=== PATIENT | male | born 1965 | race Caucasian/White ===

== ENCOUNTER → 2018-01-17 10:58 | Outpatient (CLI) | payer OTHER, SELFPAY | PROVIDERS: Family Provider Family Medicine; PCP Family Medicine; Visit Provider Chiropractor | DX: M54.12 Radiculopathy, cervical region (principal); M99.01 Segmental and somatic dysfunction of cervical region; M99.02 Segmental and somatic dysfunction of thoracic region | CPT/HCPCS: 72040 ==

== ENCOUNTER → 2018-05-25 08:09 | Outpatient (CLI) | payer OTHER, SELFPAY ==
--- NOTE | 2018-05-25 08:12 | RAD_ITS ---
STUDY: X-RAY - RIGHT SHOULDER REASON FOR EXAM: Male, 52 years old. Limited range of motion and pain. No known trauma. TECHNIQUE: 3 view(s) of the shoulder. COMPARISON: None. FINDINGS: There is arthrosis of the glenohumeral joint. There is arthrosis of the acromioclavicular joint. Normal acromion. Normal humeral head and visualized proximal humerus. The soft tissue structures are unremarkable. Normal visualized pulmonary apex. 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 Electronically Signed: Tigre Shields MD at 17:58 EST , Service support ,
== END ==
PROVIDERS: Family Provider Family Medicine; PCP Family Medicine; Referring Provider Orthopaedic Surgery; Visit Provider Orthopaedic Surgery
DX: M25.511 Pain in right shoulder (principal)
CPT/HCPCS: 73030

== ENCOUNTER → 2019-11-21 09:04 | Outpatient (CLI) | payer OTHER, SELFPAY ==
[2019-11-21 09:01] VITALS: BMI 36.5
--- NOTE | 2019-11-21 09:05 | RAD_ITS ---
STUDY: X-RAY - LEFT ANKLE REASON FOR EXAM: Male, 54 years old. PAIN X6 MONTHS, NKI TECHNIQUE: 3 view(s) of the ankle. COMPARISON: None. FINDINGS: Normal visualized distal tibia and fibula. Normal medial and lateral malleoli. Normal tibiotalar articulation and ankle mortise. Normal visualized talus. Achilles tendon spur The visualized subtalar, talonavicular, calcaneocuboid and tarsal articulations are normal. The soft tissue structures are unremarkable. RAD/Ankle min 3 Views IMPRESSION: Calcaneal spur, no demonstrated fracture or suspicious osseous lesion Electronically Signed: Jorge Luis Oliva MD at 10:10 EDT , Service support ,
== END ==
PROVIDERS: PCP Family Medicine; Referring Provider Orthopaedic Surgery; Visit Provider Orthopaedic Surgery
DX: M25.572 Pain in left ankle and joints of left foot (principal)
CPT/HCPCS: 73610

== ENCOUNTER 2019-12-27 08:00 | Outpatient (RCR) | payer OTHER, SELFPAY ==
[2019-11-21 09:01] VITALS: BMI 36.5
--- NOTE | 2019-11-27 12:26 | HP.PTEVAL ---
Patient's Visit Information PELON GLASS is a 54 year old M referred to Physical Therapy by Dr. Kerry Vázquez, with a diagnosis of LEFT PERONEAL MUSCLE STRAIN. Date of Evaluation: 11/27/19 Physical Therapist: Maryjane Gregory PT, Cert MDT - Visit Plan Frequency: 2-3x /Week Duration: 4-6 Weeks Plan: LEFT ANKLE US, ROM, STRETCHING AND STRENGTHENING TO HELP MEET SET GOALS. 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 WORKS WITH LOCAL [employer] AND [employer]. 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 Disability: NO. Present symptoms: LEFT LATERAL ANKLE PAIN. NO NUMBNESS OR TINGLING. SOME RIGHT HIP PAIN THE LAST TWO MONTHS THAT PATIENT RELATES TO COMPENSATING FOR LEFT ANKLE. LEFT LEG ALWAYS FEELS TIGHT. Present since: ABOUT 6 MONTHS AGO. Pain Scale: WORST4/10, LEAST 0/10. Currently: 06/07. Commenced as a result of: LEFT CALF SOWMYA HORSE DURING A CONFERENCE THAT CAME ON FOR NO APPARENT REASON. BECAME VERY BLACK AND BLUE. AT THE TIME THERE WAS NO ANKLE PAIN AND NO ANKLE TWISTING THAT PATIENT RE-CALLS. Symptoms at onset: LEFT CALF CRAMP? Worse: TRYING TO WALK AFTER PROLONGED SITTING/DRIVING. STAIRS. TOO MUCH WALKING. Better: GETS LOOSER WITH WALKING IF DOESN'T WALK TOO MUCH. Disturbed sleep: NO. Previous history/Previous treatment: H/O LBP BUT HAS NOT BEEN TO THE CHIROPRACTOR FOR OVER A YEAR. LEFT BONE SPUR REMOVED ABOUT 25 YEARS AGO LEFT POST ANKLE. Treatment this episode: JUST PT ORDER AND OTC MEDICATION. Gait: PATIENT REPORTS HE HAS ALWAYS TENDED TO WALK ON THE OUTSIDE OF HIS FEET. Imaging: LEFT FOOT X-RAYS - NORMAL. PMH: UNREMARKABLE OTHER THAN HTN AND HIGH CHOLESTEROL. OTHER: PATIENT REPORTS HE HAS KEPT HIS ACTIVITY LEVEL PRETTY NORMAL EXCEPT HASN'T BEEN ABLE TO SWIM DUE TO COVID AND HIS LEFT ANKLE PAIN HAS BEEN STAYING ABOUT THE SAME. TREATMENT: PATIENT WAS INSTRUCTED IN PROPER POSTURE CONTROL AND APPROPRIATE ACTIVITY MODIFICATIONS TO HELP PROMOTE HEALING AND MINIMIZE SECONDARY PROBLEMS WHILE HEALING. HE COMMUNICATED A GOOD UNDERSTANDING OF ALL INSTRUCTIONS AFTER GIVEN. - Objective THIS PATIENT AMBULATES INDEP'LY INTO PT LIMPING ON THE LLE AND WALKING ON THE OUTSIDE OF HIS FOOT WITHOUT ANY ASSISTIVE DEVICES OR LOB. HE HAS TENDERNESS ALONG THE LATERAL ASPECT OF HIS ANKLE BEHIND THE LATEAL MALLEOLUS AND INTO THE LATERAL ASPECT OF HIS FOOT. HIS CALF IS TIGHT AND TENDER. KAMRYN HIP, KNEE AND ANKLE ROM AND STRENGTH IS WFL AND PAINFREE EXCEPT HIS LEFT ANKLE. LEFT ANKLE ROM IS LIMITED TO 3 DEGREES OF ACTIVE DORSIFLEX, 48 DEG PLANTAR FLEXION (BOTH MEASURED WITH KNEE EXTENDED), FULL INVERSION AND ZERO DEG EVERSION. ANKLE DORSIFLEXION WITH KNEE FLEXION IS 5 DEG. DORSIFLEX STRENGTH IS 4/5 IN AVAILABLE RANGE, INV 4/5, EVERSION 2/5, PLANTAR FLEX NT. - Goals Goal 1:: DECREASE C/O LEFT LEG, ANKLE AND FOOT PAIN Goal Time Frame: 4-6 Weeks Goal 2:: IMPROVE STANDING AND WALKING FUNCTION Goal Time Frame: 4-6 Weeks Goal 3:: INCREASE FUNCTIONAL ROM OF LEFT ANKLE Goal Time Frame: 4-6 Weeks Goal 4:: INCREASE FUNCTIONAL STRENGTH OF LEFT ANKLE. Goal Time Frame: 4-6 Weeks Goal 5:: PATIENT WILL BE INDEP WITH A HEP FOR CONTINUED IMPROVEMENT ONCE FORMAL PHYSICAL THERAPY CONCLUDES. Goal Time Frame: 4-6 Weeks - Anticipated Interventions Patient/Client Instruction: Educate patient on: Condition, Plan of Care, Risk Factors, Benefits of Fitness Program For the Purpose of:: To facilitate caregiver knowledge Therapeutic Exercise to Include: Strength training, Balance training, Flexibilty training, Gait and locomotor training, Neuromotor development, Passive ROM, Active ROM For the Purpose of:: To decrease pain, To increase ROM, To improve muscle performance and motor function, To increase tolerance to activity/condition/position, To improve ability of physical actions for home/community/work/leisure, To improve gait and locomotor functions Manual Therapy Techniques to Include: Mobilization, Passive ROM, Soft tissue mobilization For the Purpose of:: To decrease pain, To decrease swelling/inflammation, To increase ROM, To improve nutrient delivery to tissue Cryotherapy (ice pack, ice massage): Yes Thermo therapy (hot pack): Yes Ultrasound (thermal/non thermal): Yes For the Purpose of:: To decrease pain, To decrease swelling/inflammation, To improve nutrient delivery to tissue Thank you for the opportunity to evaluate your patient. For Medicare and Medicare HMO plans, please review the plan of care and approve it. It will need to be FAXED BACK to us at [phone] for Medicare purposes. For Medicare only, by signing this I certify the plan of care. Please let me know if there are questions or concerns regarding this plan of care. Physician Signature: Date:
--- NOTE | 2020-03-30 17:39 | HP.PT.NRP ---
PELON GLASS was seen in my office for initial evaluation on 11/27/19. The following Plan of Care was established for this patient: Initial Frequency: 2-3x /Week Initial Duration: 4-6 Weeks Patient/Client Instruction: Educate patient on: Condition, Plan of Care, Risk Factors, Benefits of Fitness Program For the Purpose of:: To facilitate caregiver knowledge Therapeutic Exercise to Include: Strength training, Balance training, Flexibilty training, Gait and locomotor training, Neuromotor development, Passive ROM, Active ROM For the Purpose of:: To decrease pain, To increase ROM, To improve muscle performance and motor function, To increase tolerance to activity/condition/position, To improve ability of physical actions for home/community/work/leisure, To improve gait and locomotor functions Manual Therapy Techniques to Include: Mobilization, Passive ROM, Soft tissue mobilization For the Purpose of:: To decrease pain, To decrease swelling/inflammation, To increase ROM, To improve nutrient delivery to tissue Cryotherapy (ice pack, ice massage): Yes Thermo therapy (hot pack): Yes Ultrasound (thermal/non thermal): Yes For the Purpose of:: To decrease pain, To decrease swelling/inflammation, To improve nutrient delivery to tissue This patient was last seen in our office 12/27/19. Pertinent comments regarding their Physical therapy will appear below: This patient has not returned to Physical Therapy and is appropriate to return to MD for further follow-up as needed. At this point I will be discontinuing this patient from physical therapy. I would be happy to see this patient again in the future if found appropriate by the physician. Thank you! Maryjane Gregory, PT, Cert MDT
== END 2019-12-27 19:00 | disposition home or self-care (01) ==
LOC: PT 08:00
PROVIDERS: PCP Family Medicine; Referring Provider Orthopaedic Surgery; Visit Provider Orthopaedic Surgery
DX: S86.312D Strain of muscle(s) and tendon(s) of peroneal muscle group at lower leg level, left leg, subsequent encounter (principal)
CPT/HCPCS: 97035; 97110; 97112; 97161; 97164

== ENCOUNTER → 2020-01-16 16:36 | Outpatient (CLI) | payer OTHER, SELFPAY ==
[2020-01-02 14:41] VITALS: BMI 36.5
--- NOTE | 2020-01-16 16:38 | US_ITS ---
STUDY: SUPERFICIAL ULTRASOUND - LEFT CALF. REASON FOR EXAM: Male, 54 years old. LUMP LATERAL LEFT CALF TECHNIQUE: A superficial ultrasound was performed with real-time and static nagel-scale imaging. COMPARISON: None. FINDINGS: No obvious mass in the left calf area. US/Ext Non Vasc Limited/Soft Tiss IMPRESSION: No obvious mass in the left calf area. MRI will be more helpful. Electronically Signed: Derik Cain MD at 12:45 EDT , Service support ,
== END ==
LOC: US 16:38
PROVIDERS: PCP Family Medicine; Referring Provider Orthopaedic Surgery; Visit Provider Orthopaedic Surgery
DX: R22.9 Localized swelling, mass and lump, unspecified (principal)
CPT/HCPCS: 76882

== ENCOUNTER → 2020-04-01 06:36 | Outpatient (CLI) | payer OTHER, SELFPAY ==
--- NOTE | 2020-04-01 06:36 | MRI_ITS ---
PROCEDURE: MRI LOWER EXTREMITY LEFT TIBIA/FIBULA REASON FOR EXAM: Mid lateral calf pain, injury in April with hematoma. TECHNIQUE: Standardized fat and water weighted pulse sequences were obtained in all 3 orthogonal planes. COMPARISON: Ultrasound report 01/16/2020. FINDINGS: Normal visualized tibia and fibula, without a periosteal, cortical or cancellous marrow abnormality. There is a well-defined signal void on T1 and T2 images in the peroneus longus muscle at the level of the mid calf (T1 axial images 26-35; T2 sagittal images 24, 25), likely representing calcified hematoma. The lesion measures 1.8 x 1.5 x 7.4 cm (AP x transverse x length). There is atrophy with partial fat replacement of the peroneus longus muscle (T1 coronal images 12-14). Otherwise, unremarkable muscle groups. There is mild edema in the anterior subcutis adipose space of the mid and distal lower leg. MRI/Lower Ext/No Jt/w/o IMPRESSION: Signal void in the proximal peroneus longus muscle, likely representing a calcified hematoma. Atrophy of the peroneus longus muscle. Electronically Signed: Sean Gutierres MD at 11:29 EST Tel , Service support ,
== END ==
PROVIDERS: PCP Family Medicine; Referring Provider Orthopaedic Surgery; Visit Provider Orthopaedic Surgery
DX: S84.12XA Injury of peroneal nerve at lower leg level, left leg, initial encounter (principal); S86.312A Strain of muscle(s) and tendon(s) of peroneal muscle group at lower leg level, left leg, initial encounter
CPT/HCPCS: 73718

== ENCOUNTER 2020-08-17 07:00 | Outpatient (RCR) | payer OTHER, SELFPAY ==
--- NOTE | 2020-06-22 16:02 | HP.PTEVAL ---
Patient's Visit Information PELON GLASS is a 54 year old M referred to Physical Therapy by Dr. Kerry Vázquez DO with a diagnosis of L lateral calf calcific hematoma. Date of Evaluation: 06/22/20 Physical Therapist: Lea Juniro DPT - Visit Plan Frequency: 2x /Week Duration: 4 Weeks Plan: Manual and Stretching- Ionto-acetic acid and US in order to break up hematoma and improve functional mobiltiy - Subjective Pt reports a year ago april, had a anabela horse and became hand size of hematoma bruise, last october came for ankle pain. pain got worse on lateral upper leg below the knee and remains in that area. Pt did US and MRI- found scar tissue piece and wants to break it up on L lateral upper leg (below knee). pain: 1-2/10, feel burn with movement. worse: sitting in driving position, any movement lifting it indpendently up. better: when he lays down in the morning and he tries to stretch it out on the floor in long sitting. 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 PHMx: BP and chlolesterol. Dr. Francis said to break it up or she will have to cut it out. see massage theapy every other month. 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 sleep: sleeps prone, eases pain, no problems - Objective posture: FH, RS. gait: antalgic, decrease weight bear on L. observation: atrophy in L calf. SLS: decrease stability on L>R- can SLS for 5 sec then LOB. HR/TR: decrease weight shift on L. HR up with 2, down with L only: poor eccentric control. stairs: decrease weight bear through L, no use of UE. calf girth: L 45cm, R 46cm - 6 inches below knee crease. palpation: L gastroc tightness, tender on L lateral leg below knee- pebble size nodule. ROM: hip/knee/ankle: WFL. strength: hip/knee/ankle: 5/5 with visible muscle atrophy in L calf but no strength deficits. pt education on HEP from prior visit: calf stretching - Goals Goal 1:: Patient will perform I HEP with progression Goal Time Frame: 4-6 Weeks Goal 2:: Patient will demonstrate equal calf girth in order to promote eqaul weight shift Goal Time Frame: 4-6 Weeks Goal 3:: Patient will demonstrate equal weight bearing through gait mechanics in order to perform I functional mobility Goal Time Frame: 4-6 Weeks - Rehabilitation Potential Physical Therapy Diagnosis: Pt presents with dereased balance, ability to weight bear equally impacting functional mobility tasks and ADLs. Rehabilitation Potential: Good - Anticipated Interventions Patient/Client Instruction: Educate patient on: Plan of Care For the Purpose of:: To improve muscle performance and motor function Therapeutic Exercise to Include: Strength training, Endurance training, Balance training, Coordination, Agility training, Body mechanics, Postural training, Flexibilty training, Gait and locomotor training, Neuromotor development For the Purpose of:: To improve performance and independence with ADL's Manual Therapy Techniques to Include: Massage, Soft tissue mobilization For the Purpose of:: To improve muscle performance and motor function, To decrease soft tissue restriction Iontophoresis (with Dexamethozone, with Acetic acid): Yes Cryotherapy (ice pack, ice massage): Yes Thermo therapy (hot pack): Yes Ultrasound (thermal/non thermal): Yes Thank you for the opportunity to evaluate your patient. For Medicare and Medicare HMO plans, please review the plan of care and approve it. It will need to be FAXED BACK to us at [phone] for Medicare purposes. For Medicare only, by signing this I certify the plan of care. Please let me know if there are questions or concerns regarding this plan of care. Physician Signature: Date:
--- NOTE | 2020-07-20 08:57 | HP.PTREVAL ---
Dr. Kerry Vázquez, DO, It has been my pleasure to treat PELON GLASS over the last 9 visits for L lateral calf calcific hematoma. Please see the progress note below for an update on the physical therapy plan of care! Subjective: This past monday did not do ionto but did do US and exercise and left it feeling more agitated than it has in the past. It has been getting better though. Has been easier to find. 80% but varies. Each time he came in, he was ready to come back in. Objective/Function: posture: FH, RS. gait: able to weight bear with poor hell/toe progression. observation: fair atrophy in L calf. SLS: decrease stability on L>R- can SLS for 7 sec then LOB. HR/TR: able to weight shift bilaterally. stairs: reciprocal with equal weight bearing through bilateral LE no use of UE. calf girth: L 45cm, R 46cm - 6 inches below knee crease. palpation: denies tenderness L gastroc tightness, decrease in size of nodule as compared to eval. ROM: hip/knee/ankle: WFL. strength: hip/knee/ankle: 5/5 with visible muscle atrophy in L calf but no strength deficits. Flexibilty: calf moderate Plan Plan: Pt to continue with PT in order to increase flexibilty, strength and proper gait mechanics. continue with ionto, US, and stretching Goals Goal 1:: Patient will perform I HEP with progression Goal Time Frame: 4-6 Weeks Goal Progress: Progressing Goal 2:: Patient will demonstrate equal calf girth in order to promote eqaul weight shift Goal Time Frame: 4-6 Weeks Goal Progress: Progressing Goal 3:: Patient will demonstrate equal weight bearing through gait mechanics in order to perform I functional mobility Goal Time Frame: 4-6 Weeks Goal Progress: Progressing Anticipated Interventions Patient/Client Instruction: Educate patient on: Plan of Care For the Purpose of:: To improve muscle performance and motor function Therapeutic Exercise to Include: Strength training, Endurance training, Balance training, Coordination, Agility training, Body mechanics, Postural training, Flexibilty training, Gait and locomotor training, Neuromotor development For the Purpose of:: To improve performance and independence with ADL's Manual Therapy Techniques to Include: Massage, Soft tissue mobilization For the Purpose of:: To improve muscle performance and motor function, To decrease soft tissue restriction Iontophoresis (with Dexamethozone, with Acetic acid): Yes Cryotherapy (ice pack, ice massage): Yes Thermo therapy (hot pack): Yes Ultrasound (thermal/non thermal): Yes Please do not hesitate to contact me at [phone] by phone or if you have questions or concerns regarding this new plan of care! Sincerely, JO ANN BrockT
--- NOTE | 2020-08-17 08:39 | HP.PTDCSUM ---
It has been my pleasure to treat PELON GLASS referred by Dr. Kerry Vázquez DO, with the diagnosis of L lateral calf calcific hematoma for a total of 17 visit(s). Discharge Date: Please see the following information for a summary of their discharge status. Subjective: Pt reports that its bettter, just have tightness. Pt reports that if he sits stilll for a long period of time it tightens up. Pt reports that stretching gives it some relief. 2/10 tightness currently. Pt reports that th first 3 weeks he made progress but no as much the last 3 weeks. Right Lower Extremity Pain Intensity (Out of 10): 0 % Improvement: 60 Objective/Function: posture: FH, RS. gait: able to weight bear with mild heel/toe progression. observation: minimal but still present atrophy in L calf. SLS: decrease stability on L>R- can SLS for 10 sec then LOB. HR/TR: able to weight shift bilaterally. stairs: reciprocal with equal weight bearing through bilateral LE no use of UE. calf girth: L 45.5cm, R 48cm - 6 inches below knee crease. palpation: denies tenderness L gastroc tightness, decrease in size of nodule as compared to eval. ROM: hip/knee/ankle: WFL. strength: hip/knee/ankle: 5/5 with visible muscle atrophy in L calf but no strength deficits. Flexibilty: calf moderate Goal 1:: Patient will perform I HEP with progression Goal Progress: Goal Met Goal 2:: Patient will demonstrate equal calf girth in order to promote eqaul weight shift Goal Progress: Progressing Goal 3:: Patient will demonstrate equal weight bearing through gait mechanics in order to perform I functional mobility Goal Progress: Goal Met Plan: Pt to be d/c and continue with I HEP, encocuraged to contact with questions and concerns If there are questions or concerns regarding this patient's physical therapy, please feel free to call me at [phone]. Thank you for the referral of this patient. Sincerely, Lea Junior DPT
== END 2020-08-17 19:00 | disposition home or self-care (01) ==
LOC: PT 07:00
PROVIDERS: PCP Family Medicine; Referring Provider Orthopaedic Surgery; Visit Provider Orthopaedic Surgery
DX: S80.12XD Contusion of left lower leg, subsequent encounter (principal)
CPT/HCPCS: 97033; 97035; 97110; 97140; 97162; 97164

== ENCOUNTER → 2024-01-16 | Outpatient (CLI) | payer OTHER, SELFPAY ==
--- NOTE | 2024-01-16 06:47 | CT_ITS ---
STUDY: CT ABDOMEN WITH CONTRAST REASON FOR EXAM: Male, 58 years old. R abdominal pain/nodule seen on lateral lumbar -- anterior to T12,US was normal RADIATION DOSAGE (If Supplied By Facility): CTDIvol = ( 15.41 ) mGy, DLP = ( 951.49 ) mGycm TECHNIQUE: Transaxial images were obtained post I.V. administration of Oral and amp; IV Readi-CAT and amp; 100mL Isovue-300, and without oral contrast. Sagittal and coronal images were reconstructed. Individualized dose optimization techniques were used for this CT. COMPARISON: None. FINDINGS: Minimal degree of the dependent bibasilar atelectasis. The visualized portions of the heart are within normal limits. There is decreased attenuation of the liver consistent with steatosis. Normal gallbladder and extrahepatic biliary system. There is a 4 cm x 4.1 cm cystic nodule in the anterior superior aspect of the spleen with calcific rim. This most likely represents the density seen on the lumbar radiographs. Normal pancreas. Normal bilateral adrenal glands. Normal right kidney. Normal left kidney. Normal visualized stomach. Normal small intestine. Normal colon. The appendix is visualized and appears normal. There is scattered atherosclerotic calcification of the abdominal aorta, without a demonstrated aneurysm. Normal inferior vena cava. Normal retroperitoneum. There is a small umbilical hernia containing fat. There are degenerative changes of the visualized lumbar spine. Minimal anterior listhesis of L5 on S1 with spondylolysis of the pars interarticularis the L5 vertebrae. CT/Abdomen WITH IV Contrast IMPRESSION: Fatty infiltration of the liver. 4 cm x 4.1 solid cystic nodule in the anterior superior aspect of the spleen with calcific rim. This most likely represents the abnormality visualized the lumbar radiographs. Electronically Signed: Michael Anne MD at 7:46 EDT ,
[2024-01-16 07:12] LABS: CREATININE FINGERSTICK < 1.0 mg/dL (0.70-1.30); EGFR FINGERSTICK > 60.0000 mL/min (>60)
== END | disposition home or self-care (01) ==
PROVIDERS: PCP Family Medicine; Referring Provider Chiropractor; Visit Provider Chiropractor
DX: R10.9 Unspecified abdominal pain (principal)
CPT/HCPCS: 74160; Q9967